=== PATIENT | male | born 1990 | race Caucasian/White ===

== ENCOUNTER 2020-05-24 09:47 | Emergency (ER) | payer BC ==
[2020-05-24] MEDS ORDERED: Oxymetazoline 0.05% Nasal Spray 30 ML Bottle NAS ONE (10:44)
--- NOTE | 2020-05-24 11:44 | EDM.PDOC ---
ED HPI GENERAL MEDICAL PROBLEM - General Chief Complaint: ENT Problem Stated Complaint: NOSEBLEED Time Seen by Provider: 05/24/20 10:05 Source of Information: Reports: Patient History Limitations: Reports: No Limitations - History of Present Illness INITIAL COMMENTS - FREE TEXT/NARRATIVE: The patient had come in with epistaxis. This is been an ongoing problem for him. He has had the problem since childhood apparently. He has had ENT evaluation in the past. He has had cautery of his bleeding source apparently. This is been in the past. The bleeding is always from the right side. He has been without epistaxis for perhaps a couple of months. 5 days ago he had a telemedicine visit with the doctor who thought he had a sinus infection and prescribed cefuroxime. He has been taking this as ordered for the past 5 days and has had fairly persistent epistaxis for the past 5 days. No fever or any other symptoms of acute medical illness otherwise. He has not used Afrin spray and had never heard of using that for epistaxis. - Related Data Allergies Allergy/AdvReac Type Severity Reaction Status Date / Time No Known Allergies Allergy Verified 05/24/20 09:58 Home Meds: Home Meds Cefuroxime Axetil [Ceftin] 500 mg PO BID 05/24/20 [History] Past Medical History HEENT History: Reports: Epistaxis Endocrine/Metabolic History: Reports: Obesity/BMI 30+ - Past Surgical History HEENT Surgical History: Reports: Oral Surgery Social & Family History - Tobacco Use Tobacco Use Status *Q: Never Tobacco User - Caffeine Use Caffeine Use: Reports: Coffee - Recreational Drug Use Recreational Drug Use: No ED ROS ENT - Review of Systems Review Of Systems: Comprehensive ROS is negative, except as noted in HPI. ED EXAM, ENT - Physical Exam Exam: See Below Text/Narrative:: The patient appears healthy and robust. There is no distress at all. He does have a tissue plug in his right nostril. Examination of the nose, there is some dried blood around the opening of the nare on the right. There is scarring of the septum on the right side. There is a small apparently excoriated area just inside the opening of the nostril. This does not seem to be the source of the bleeding however. Clots are coming down but no discrete bleeding site can be determined. Neck is supple without jugular venous distention lungs are clear with equal full breath sounds bilaterally heart is regular abdomen soft nontender no flank tenderness no peripheral edema neurologically grossly intact with fluent speech normal gait. There is no pitting edema. As noted patient appears well-developed and quite healthy otherwise. Exam Limited By: No Limitations General Appearance: Alert, WD/WN, No Apparent Distress Course - Vital Signs Text/Narrative:: Afrin spray was used in the right nostril with some improvement. It is noted that there is no copious bleeding. Patient is not anemic and coags are normal. Discussed plan fully with the patient. He is to use Afrin to moderate bleeding. He is to call his primary today and get a referral to ENT. The situation is apparently not serious enough for transfer at this point but he understands that if the bleeding continues over the weekend please come to the emergency department and we will transfer him for ENT. Rhino Rocket is not indicated at this point but he will probably need one for any more serious bleeding. Last Recorded V/S: Last Vital Signs Temp 35.7 C L 05/24/20 09:55 Pulse 81 05/24/20 09:55 Resp 16 05/24/20 09:55 BP 157/88 H 05/24/20 09:55 Pulse Ox 98 05/24/20 09:55 - Orders/Labs/Meds Orders: Active Orders 24 hr Category Date Time Status COMPREHENSIVE METABOLIC PN,CMP [CHEM] Stat Lab 05/24/20 11:00 Received Labs: Laboratory Tests 05/24/20 05/24/20 Range/Units 11:00 11:00 WBC 7.91 (4.23-9.07) K/mm3 RBC 5.48 (4.63-6.08) M/mm3 Hgb 17.3 (13.7-17.5) gm/dl Hct 50.9 (40.1-51.0) % MCV 92.9 H (79.0-92.2) fl MCH 31.6 (25.7-32.2) pg MCHC 34.0 (32.2-35.5) g/dl RDW Std Deviation 45.2 H (35.1-43.9) fL Plt Count 168 (163-337) K/mm3 MPV 10.7 (9.4-12.3) fl Neutrophils % (Manual) 68 H (40-60) % Band Neutrophils % 0 (0-10) % Lymphocytes % (Manual) 23 (20-40) % Atypical Lymphs % 0 % Monocytes % (Manual) 7 (2-10) % Eosinophils % (Manual) 2 (0.8-7.0) % Basophils % (Manual) 0 L (0.2-1.2) Platelet Estimate Adequate RBC Morph Comment Normal PT 11.9 (9.7-12.0) SECONDS INR 1.11 Meds: Medications Discontinued Medications Generic Name Dose Route Start Last Admin Trade Name Frantz PRN Reason Stop Dose Admin Oxymetazoline HCl 2 ml 05/24/20 10:44 05/24/20 11:04 Oxymetazoline 0.05% Nasal Christopher 30 Ml Bottle JED 05/24/20 10:45 2 ml ONETIME ONE Administration Departure - Departure Time of Disposition: 12:01 Disposition: Home, Self-Care 01 Condition: Good Clinical Impression: Epistaxis - Discharge Information Referrals: PCP,None [Primary Care Provider] - Additional Instructions: Please call your primary physician today. Get a referral to ENT. Be seen CLARIB[facility]. If there is any bleeding in the next day or so that is not tolerable please come back to the emergency department here and we will transfer you for definitive care. Okay to use the Afrin to moderate the bleeding but if this is not effective please come back to the ER. Sepsis Event Note (ED) - Evaluation Sepsis Screening Result: No Definite Risk - Focused Exam Vital Signs: Vital Signs Temp Pulse Resp BP Pulse Ox 05/24/20 09:55 35.7 C L 81 16 157/88 H 98 - My Orders Last 24 Hours: My Active Orders 05/24/20 11:00 COMPREHENSIVE METABOLIC PN,CMP [CHEM] Stat - Assessment/Plan Last 24 Hours: My Active Orders 05/24/20 11:00 COMPREHENSIVE METABOLIC PN,CMP [CHEM] Stat
== END 2020-05-24 12:14 | disposition home or self-care (01) ==
LOC: JD.ED 09:47
DX: R04.0 Epistaxis (principal); E66.9 Obesity, unspecified; Z68.31 Body mass index [BMI] 31.0-31.9, adult
CPT/HCPCS: 36415; 80053; 85007; 85027; 85610; 99283; A9270; 99282

== ENCOUNTER 2022-11-04 20:00 | Emergency (ER) | payer BC, OTHER ==
[2022-11-04] MEDS ORDERED: traMADol 50 MG Tab PO ONE (22:51)
[2022-11-04] MEDS ORDERED: predniSONE 20 MG Tab PO ONE (22:51)
== END 2022-11-04 23:10 | disposition home or self-care (01) ==
LOC: JD.ED 20:00
DX: M51.16 Intervertebral disc disorders with radiculopathy, lumbar region (principal); E66.9 Obesity, unspecified; Z86.16 Personal history of COVID-19; Z68.33 Body mass index [BMI] 33.0-33.9, adult
CPT/HCPCS: 72131; 99284; A9270; J7512; 99283